=== PATIENT | female | born 1975 | race Caucasian/White ===

== ENCOUNTER → 2017-11-25 11:54 | Outpatient (CLI) | payer OTHER, SELFPAY ==
--- NOTE | 2017-11-25 11:58 | XR_ITS ---
XR chest 2V HISTORY: ITS.REASON: RIB PAIN, ORDERING PHYSICIAN: Jori Mcghee MD PATIENT AGE: 42 years COMPARISON: PA and lateral chest 08/31/2007 FINDINGS: The cardiomediastinal silhouette and pulmonary vascularity are within normal limits. The lungs are clear without infiltrates, suspicious nodules, or pleural effusions. There are partially calcified hilar nodes bilaterally. No acute bony abnormalities. IMPRESSION: Negative chest, no acute finding
== END ==
PROVIDERS: PCP Family Medicine; Visit Provider Internal Medicine
DX: R07.81 Pleurodynia (principal)
CPT/HCPCS: 71046

== ENCOUNTER → 2018-03-10 08:10 | Outpatient (CLI) | payer OTHER, SELFPAY ==
--- NOTE | 2018-03-10 08:11 | XR_ITS ---
XR elbow LT min 3V HISTORY: ITS.REASON: elbow pain ORDERING PHYSICIAN: Gerardo Carroll MD PATIENT AGE: 43 years COMPARISON: None FINDINGS: No fracture or dislocation. No evidence of displaced fat pad. There is mild soft tissue swelling overlying the olecranon region. IMPRESSION: Mild soft tissue swelling otherwise negative
== END ==
PROVIDERS: PCP Family Medicine; Visit Provider Orthopaedic Surgery
DX: M25.522 Pain in left elbow (principal)
CPT/HCPCS: 73080

== ENCOUNTER → 2018-05-19 08:20 | Outpatient (CLI) | payer OTHER, SELFPAY ==
--- NOTE | 2018-05-19 08:21 | MM_ITS ---
MM Dig screening mamm BI w/CAD ORDERING PHYSICIAN : Randy Velasquez MD PATIENT AGE: 43 years GENDER: Female COMPARISON: February 2017, May 2016 and April 2016 mammogram studies.. Also November 2011 INDICATION: ITS.REASON: Routine Screening Mammogram TECHNIQUE: Standard CC and MLO images were obtained. R2 CAD reviewed. FINDINGS: Moderately dense breast. Mammography slight decreased sensitivity in breast of this moderately dense heterogeneous character. Stable mild asymmetry with With no dominant mass or suspicious calcifications additionally seen today. Prior films are helpful and supportive stable appearance CAD computer review highlights no areas of concern either today RIGHT BREAST: No new areas of concern. Follow-up in one recommended. LEFT BREAST:No new areas of concern. The previously noted subtle architectural irregularity superior left breast unchanged since 2016. No significant new areas concern either breast. IMPRESSION: ...... Stable bilateral mammogram with no significant new findings. Moderately dense breast Follow-up in one year recommended BI-RADS Category: 2 Benign Finding(s) RECOMMENDED FOLLOW-UP: 1YR 1 YEAR FOLLOW-UP (A letter has been sent to the patient regarding results of the study.)
== END ==
PROVIDERS: PCP Family Medicine; Visit Provider Nurse Practitioner Obstetrics & Gynecology
DX: Z12.31 Encounter for screening mammogram for malignant neoplasm of breast (principal)
CPT/HCPCS: 77067

== ENCOUNTER → 2018-07-22 14:06 | Outpatient (POV) | payer OTHER, SELFPAY | PROVIDERS: Visit Provider Dermatology | DX: Z00.00 Encounter for general adult medical examination without abnormal findings (principal) ==

== ENCOUNTER → 2019-01-15 08:24 | Outpatient (CLI) | payer OTHER, SELFPAY ==
--- NOTE | 2019-01-15 08:27 | XR_ITS ---
PROCEDURE: XR ANKLE WT BEARING RT MIN 3V CLINICAL INDICATION: pain COMPARISON: No exams were available for comparison FINDINGS: No fracture, dislocation, lytic change, or blastic change evident. No significant degenerative change. The talar dome is well preserved IMPRESSION: Negative right ankle Dictated by: Danyel Gama MD 01/15/2019 18:09 Signed by: <Electronically signed by Danyel Gama MD in [place]> 01/15/2019 18:09
--- NOTE | 2019-01-15 08:27 | XR_ITS ---
PROCEDURE: XR FOOT WT BEARING RT 3V CLINICAL INDICATION: pain COMPARISON: No exams were available for comparison FINDINGS: No fracture or dislocation. Normal alignment No significant arthritic changes or bony erosive process. Unremarkable soft tissues IMPRESSION: Negative foot Dictated by: Danyel Gama MD 01/15/2019 09:14 Signed by: <Electronically signed by Danyel Gama MD in [place]> 01/15/2019 09:14
== END ==
PROVIDERS: PCP Family Medicine; Visit Provider Podiatrist
DX: M79.671 Pain in right foot (principal); M25.571 Pain in right ankle and joints of right foot
CPT/HCPCS: 73610; 73630

== ENCOUNTER → 2019-01-29 08:14 | Outpatient (CLI) | payer OTHER, SELFPAY ==
--- NOTE | 2019-01-29 08:16 | XR_ITS ---
PROCEDURE: XR ANKLE WT BEARING RT MIN 3V CLINICAL INDICATION: achilles tendonitis of right lower extremity Foot pain, Achilles tendinitis COMPARISON: XR ANKLE WT BEARING RT MIN 3V from 01/15/2019 FINDINGS: No fracture or dislocation. No lytic or blastic change. There is an enthesophytes at the Achilles insertion with a lucency at the base of the enthesophytes. IMPRESSION: No change with no acute finding Dictated by: Danyel Gama MD 01/29/2019 09:53 Signed by: <Electronically signed by Danyel Gama MD in [place]> 01/29/2019 09:53
== END ==
PROVIDERS: PCP Family Medicine; Visit Provider Podiatrist
DX: M65.28 Calcific tendinitis, other site (principal); M76.61 Achilles tendinitis, right leg
CPT/HCPCS: 73610

== ENCOUNTER → 2019-02-17 16:11 | Outpatient (CLI) | payer OTHER, SELFPAY ==
--- NOTE | 2019-02-17 16:14 | XR_ITS ---
PROCEDURE: XR CHEST 2V CLINICAL HISTORY: cough COMPARISON: CXR2V XR chest 2V from 11/25/2017 FINDINGS: The cardiomediastinal silhouette and pulmonary vascularity are within normal limits. The lungs are clear without infiltrates, suspicious nodules, or pleural effusions. No acute bony abnormalities. IMPRESSION: No acute findings. Dictated by: Danyel Gama MD 02/17/2019 16:45 Electronically signed by Danyel Gama MD in [place] 02/17/2019 16:45
== END ==
PROVIDERS: PCP Physician Assistant; Visit Provider Physician Assistant
DX: R05 Cough (principal)
CPT/HCPCS: 71046

== ENCOUNTER → 2019-06-23 08:09 | Outpatient (POV) | payer OTHER, SELFPAY | PROVIDERS: Visit Provider Dermatology | DX: Z00.00 Encounter for general adult medical examination without abnormal findings (principal) ==

== ENCOUNTER → 2019-07-08 08:19 | Outpatient (CLI) | payer OTHER, SELFPAY ==
--- NOTE | 2019-07-08 08:25 | MM_ITS ---
PROCEDURE: MM DIG SCREENING MAMM BI W/CAD CLINICAL INDICATION: Routine Screening Mammogram There is no personal or family history of breast cancer COMPARISON: DMDB DIG MAMM-DX RENARD W/CAD from 02/19/2017 [facility] MM Dig screening mamm BI w/CAD from 05/19/2018 TECHNIQUE: Standard CC and MLO images and 3D Tomosynthesis was obtained. R2 CAD reviewed. FINDINGS: Fibroglandular densities are seen in the central portions of both breast on a background of fatty breast parenchyma. There is no suspicious lesion and no suspicious microcalcifications. Jay images were reviewed showing no abnormality. IMPRESSION: Fibrofatty parenchyma with no suspicious lesions seen BI-RAD Category: 1 Negative FOLLOW-UP: 1YR 1 Year Follow-up (A letter has been sent to the patient regarding results of the study.) Dictated by: Dr. Bro Lr MD 07/09/2019 13:[address] Bro Lr MD in [place] 07/09/2019 13:09
== END ==
PROVIDERS: PCP Family Medicine; Visit Provider Nurse Practitioner Obstetrics & Gynecology
DX: Z12.31 Encounter for screening mammogram for malignant neoplasm of breast (principal)
CPT/HCPCS: 77063; 77067

== ENCOUNTER → 2019-12-14 11:18 | Outpatient (CLI) | payer OTHER, SELFPAY ==
--- NOTE | 2019-12-14 11:19 | CA_ITS ---
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 RVT Ht: 5 ft 4 in Wt: 144lbs BSA: 1.70 BP: 116/73 mmHg Indications: CP,PALPS,SMOKER 2D Dimensions LVOT 1.70 cm (M/F) 1.5-2.5 M-Mode Dimensions RVDd 2.35 cm (0.9-2.6) LVDd 3.94 cm (3.5-5.7) LVDs 2.63 cm (3.5-5.7) IVSd 1.10 cm (0.6-1.1) PWd 0.66 cm (0.6-1.1) EF (Teich) 62.50% FS 33.20% EDV (Teich) 67.50 mL ESV (Teich) 25.30 mL LV Diastology E/A Ratio 0.76 Mitral Valve MV A Velocity 76.00 (40-130 cm/s) Left Ventricle Left atrium is normal size, left ventricle is normal size, left ventricle wall thickness is upper limit of the normal, there is preserved left ventricular systolic function, visually estimated ejection fraction 55% with no regional wall motion abnormality, grade 1 diastolic dysfunction seen without tissue Doppler evidence of raise left atrial pressure. Right Ventricle Right atrium and right ventricular normal size and contractility. Aortic Valve Aortic valve is grossly normal, there is no aortic stenosis or aortic insufficiency. Mitral Valve Mitral valve is grossly normal, there is mild mitral regurgitation. Tricuspid Valve Tricuspid valve grossly normal, there is mild tricuspid regurgitation, tricuspid regurgitation jet velocity is inadequate for calculation of the right ventricular systolic pressure. Pulmonic Valve Pulmonic valve is poorly visualized. Great Vessels Aortic root is normal size. Pericardium No significant pericardial effusion noted. Conclusion 1. Normal left ventricular size, preserved left ventricular systolic function, visually estimated ejection fraction 55% with no regional wall motion abnormality. Grade 1 diastolic dysfunction seen without tissue Doppler evidence of raise left atrial pressure. 2. Mild mitral and tricuspid regurgitation. 3. No significant pericardial effusion noted. Electronically signed by : Drew Sepulveda, 12/14/2019 17:48:17
[2019-12-14 13:00] LABS: Chloride 103 mmol/L (98-107); Potassium 4.4 mmoL/L (3.5-5.1); Sodium 139 mmol/L (136-145)
[2019-12-14 13:02] LABS: Blood Urea Nitrogen 16 mg/dl (7-17); Estimated Glomerular Filt Rate 49 ml/min (>60); GFR (African American) 59 ML/MIN (>60)
[2019-12-14 13:03] LABS: Anion Gap 12.4 mEq/L (5-15); Calcium 9.6 mg/dl (8.4-10.2); Carbon Dioxide 28 mmol/L (22.0-30.0); Glucose 93 mg/dl (74-100); Magnesium 2.1 mg/dl (1.6-2.3)
[2019-12-14 13:20] LABS: Triiodothryronine (T3) Uptake 32 % (23.5-40.5)
[2019-12-14 13:21] LABS: Free Thyroxine Index 3.2 ug/dL (5.93-13.13)
[2019-12-14 13:35] LABS: Thyroid Stimulating Hormone 1.35 uIU/mL (0.465-4.68)
== END ==
PROVIDERS: PCP Family Medicine; Visit Provider Physician Assistant
DX: I48.92 Unspecified atrial flutter (principal); R00.2 Palpitations
CPT/HCPCS: 36415; 80048; 83735; 84436; 84443; 84479; 93306

== ENCOUNTER → 2019-12-15 10:01 | Outpatient (CLI) | payer OTHER, SELFPAY | PROVIDERS: PCP Family Medicine; Visit Provider Internal Medicine | DX: I49.9 Cardiac arrhythmia, unspecified (principal) | CPT/HCPCS: 93225; 93226 ==

== ENCOUNTER → 2020-02-09 14:05 | Outpatient (POV) | payer OTHER, SELFPAY | PROVIDERS: Visit Provider Dermatology | DX: Z00.00 Encounter for general adult medical examination without abnormal findings (principal) ==

== ENCOUNTER → 2020-02-26 07:25 | Outpatient (CLI) | payer OTHER, SELFPAY ==
[2020-02-26 08:39] LABS: Alanine Aminotransferase 24 U/L (12-78); Alkaline Phosphatase 57 U/L (38-126); Aspartate Amino Transferase 24 U/L (14-36); Bilirubin,Unconjugated 0.9 mg/dL (0.0-1.1)
[2020-02-26 08:40] LABS: Albumin Level 4.1 g/dl (3.5-5.0); Chol/HDL Ratio 4.9 (1-3.5); Cholesterol 251 mg/dl (140-200); HDL Cholesterol 51 mg/dl (40-60); Total Protein,Serum 6.7 g/dl (6.3-8.2); Triglycerides 97 mg/dl (30-150); VLDL Cholesterol 19 mg/dL (0-40)
[2020-02-26 08:51] LABS: Direct LDL Cholesterol 172.25 mg/dL (100-129)
== END ==
PROVIDERS: Visit Provider Nurse Practitioner Family
DX: E78.5 Hyperlipidemia, unspecified (principal)
CPT/HCPCS: 36415; 80061; 80076

== ENCOUNTER → 2020-03-07 07:43 | Outpatient (CLI) | payer OTHER, SELFPAY ==
--- NOTE | 2020-03-07 07:43 | CA_ITS ---
APPROVED REPORT Exam: Exercise Treadmill Technologist: Terrie Leslie, Ht: 5 ft 4 in Wt: 140 lbs BSA: 1.68 m2 HR: 82 bpm BP: 117/70 mmHg Indications: Shortness of Breath Medical History Medications: Aspirin,,,,, Atorvastatin,,,,, Ranitidine,,,,, Ropinirole,,,,, Stress Test Details Test: Roberto HR Resting HR: 99 bpm Max Heart Rate (APMHR): 176 bpm Max HR Achieved: 154 bpm Target HR (85% APMHR): 149 bpm % of APMHR: 87 Recovery HR: 94 bpm BP Resting BP: 117/70 mmHg Max BP: 160/82 mmHg Recovery BP: 131.0/82.0 mmHg ECG Clinical Exercise duration: 11:08 min Highest Stage Achieved: Exercise capacity: 12.8 METs Stress ECG Conclusion Resting EKG: Sinus Rhythm Roberto Protocol Completed, Excerised 11:08, stopped due to sweating and SOB Mets: 12.8 Max HR: 154 bpm Max BP: 160/82 Symptoms: No Chest Pain, (+) SOB, (+) Sweating at peak excerise, resolved in recovery Arrythmias/Ectopy: OCC PVC ST-T changes: Greater than 1.5 mm in Inferior Leads, resolved in recovery Conclusion: 1. GXT only 2. Appropriate BP response 3. Good excerise capacity 4. Denies Chest Pain 5. OCC PVC 6. Less than 1.[address] Depression 7. Normal exercise treadmill stress test. Test Summary RECOVERY 04:00 0.0 0.0 100 . 139/ 85 . . REST 08:41 0.0 0.0 99 . 117/ 70 . . Stage 1 01:00 10.0 1.7 109 . . . . Stage 1 02:00 10.0 1.7 115 . . . . Stage 1 03:00 10.0 1.7 120 . 120/ 76 . . Stage 2 01:00 12.0 2.5 121 . . . . Stage 2 02:00 12.0 2.5 120 . . . . Stage 2 03:00 12.0 2.5 128 . 132/ 80 . . Stage 3 01:00 14.0 3.4 133 . . . . Stage 3 02:00 14.0 3.4 132 . . . . Stage 3 03:00 14.0 3.4 132 . 148/ 84 . . Stage 4 01:00 16.0 4.2 148 . . . . Stage 4 02:00 16.0 4.2 152 . . . . Stage 4 02:08 16.0 4.2 154 . . . Stop exercise at 11:08 RECOVERY 01:00 0.0 0.0 122 . . . . RECOVERY 02:00 0.0 0.0 111 . 160/ 82 . . RECOVERY 03:00 0.0 0.0 103 . 139/ 85 . . RECOVERY 04:00 0.0 0.0 100 . 139/ 85 . . RECOVERY 04:36 0.0 0.0 94 . 131/ 82 . . Electronically signed by : Drew Sepulveda, 03/07/2020 19:32:50
== END ==
PROVIDERS: PCP Family Medicine; Visit Provider Nurse Practitioner Family
DX: R06.02 Shortness of breath (principal); E78.5 Hyperlipidemia, unspecified; Z72.0 Tobacco use
CPT/HCPCS: 93017

== ENCOUNTER → 2020-03-10 10:23 | Outpatient (CLI) | payer OTHER, SELFPAY ==
--- NOTE | 2020-03-10 10:28 | XR_ITS ---
PROCEDURE: XR CHEST 2V CLINICAL HISTORY: congestion Cough and congestion COMPARISON: CR CXR2V XR chest 2V from 11/25/2017 CR XR CHEST 2V from 02/17/2019 FINDINGS: The cardiomediastinal silhouette and pulmonary vascularity are within normal limits. The lungs are clear without infiltrates, suspicious nodules, or pleural effusions. No acute bony abnormalities. IMPRESSION: No acute findings. Dictated by: Danyel Gama MD 03/10/2020 16:57 Danyel Gama MD in [place] 03/10/2020 16:57
== END ==
PROVIDERS: PCP Family Medicine; Visit Provider Nurse Practitioner Family
DX: R09.89 Other specified symptoms and signs involving the circulatory and respiratory systems (principal)
CPT/HCPCS: 71046

== ENCOUNTER → 2020-09-27 15:09 | Outpatient (POV) | payer OTHER, SELFPAY | PROVIDERS: Visit Provider Dermatology | DX: Z00.00 Encounter for general adult medical examination without abnormal findings (principal) ==

== ENCOUNTER → 2021-02-07 13:14 | Outpatient (POV) | payer OTHER, SELFPAY | PROVIDERS: Visit Provider Dermatology | DX: Z00.00 Encounter for general adult medical examination without abnormal findings (principal) ==

== ENCOUNTER → 2021-02-28 14:46 | Outpatient (CLI) | payer OTHER, SELFPAY ==
--- NOTE | 2021-02-28 14:49 | XR_ITS ---
PROCEDURE: XR RIBS RT MIN 3V W CXR1V CLINICAL INDICATION: RIB PAIN ON RT SIDE COMPARISON: CR CXR2V XR chest 2V from 11/25/2017 CR XR CHEST 2V from 02/17/2019 CR XR CHEST 2V from 03/10/2020 FINDINGS: Frontal view of the chest shows no acute finding. Three views of the right ribs show no fracture or dislocation. No lytic or blastic change. IMPRESSION: No acute findings. Dictated by: Danyel Gama MD 02/28/2021 15:08 Danyel Gama MD in [place] 02/28/2021 15:08
== END ==
PROVIDERS: PCP Family Medicine; Visit Provider Family Medicine
DX: R07.81 Pleurodynia (principal)
CPT/HCPCS: 71101

== ENCOUNTER → 2021-09-26 08:11 | Outpatient (POV) | payer OTHER, SELFPAY | PROVIDERS: Visit Provider Dermatology | DX: Z00.00 Encounter for general adult medical examination without abnormal findings (principal) ==

== ENCOUNTER → 2021-11-08 07:29 | Outpatient (CLI) | payer OTHER, SELFPAY ==
[2021-11-08 08:02] LABS: Basophils # 0.1 K/mm3 (0-0.2); Basophils % 1.2 % (0.1-2.0); Eosinophils # 0.4 K/mm3 (0.0-0.4); Eosinophils % 6.3 % (0.1-12.0); Hematocrit 44.1 % (37.0-47.0); Hemoglobin 15.1 g/dL (12.2-16.2); Lymphocytes # 2.4 K/mm3 (0.7-4.5); Mean Corpuscular HGB Conc 34.2 g/dL (31.8-35.4); Mean Corpuscular Hemoglobin 31.7 pg (27.0-31.2); Mean Corpuscular Volume 92.5 fl (81-99); Mean Platelet Volume 7.2 fl (7.4-10.4); Monocytes # 0.5 K/mm3 (0.1-1.0); Monocytes % 6.9 % (1.7-9.3); Neutrophils # 3.5 K/mm3 (1.8-7.8); Neutrophils % 50.7 % (37.0-80.0); Platelet Count 311 K/mm3 (142-424); Red Blood Count 4.76 M/mm3 (4.20-5.40); Red Cell Distribution Width 12.7 % (11.5-17.5); White Blood Count 6.9 K/mm3 (4.8-10.8)
[2021-11-08 08:17] LABS: Chloride 108 mmol/L (98-107); Sodium 139 mmol/L (136-145)
[2021-11-08 08:18] LABS: Potassium 4.2 mmoL/L (3.5-5.1)
[2021-11-08 08:20] LABS: Alanine Aminotransferase 46 U/L (12-78); Alkaline Phosphatase 74 U/L (38-126); Anion Gap 9.2 mEq/L (5-15); Aspartate Amino Transferase 43 U/L (14-36); Bilirubin,Direct 0.1 mg/dl (0.0-0.4); Bilirubin,Indirect 0.8 mg/dL (0.0-0.9); Bilirubin,Total 0.9 mg/dl (0.2-1.3); Bilirubin,Unconjugated 0.9 mg/dL (0.0-1.1); Blood Urea Nitrogen 11 mg/dl (7-17); Calcium 9.7 mg/dl (8.4-10.2); Carbon Dioxide 26 mmol/L (22.0-30.0); Cholesterol 262 mg/dl (140-200); Estimated Glomerular Filt Rate 78 ml/min (>60); GFR (African American) 94 ML/MIN (>60); Glucose 109 mg/dl (74-100); Triglycerides 134 mg/dl (30-150); VLDL Cholesterol 27 mg/dL (0-40)
[2021-11-08 08:21] LABS: Albumin Level 4.3 g/dl (3.5-5.0); HDL Cholesterol 44 mg/dl (40-60); Magnesium 1.9 mg/dl (1.6-2.3); Total Protein,Serum 6.8 g/dl (6.3-8.2)
[2021-11-08 08:32] LABS: Direct LDL Cholesterol 184.99 mg/dL (100-129)
[2021-11-08 08:50] LABS: Thyroid Stimulating Hormone 1.54 uIU/mL (0.465-4.68)
== END ==
PROVIDERS: PCP Family Medicine; Visit Provider Internal Medicine
DX: R06.02 Shortness of breath (principal); E78.5 Hyperlipidemia, unspecified; Z72.0 Tobacco use; Z82.49 Family history of ischemic heart disease and other diseases of the circulatory system; Z79.899 Other long term (current) drug therapy
CPT/HCPCS: 36415; 80048; 80061; 80076; 83735; 84439; 84443; 85025

== ENCOUNTER → 2021-11-13 07:27 | Outpatient (CLI) | payer SELFPAY ==
--- NOTE | 2021-11-13 07:27 | CT_ITS ---
FINAL REPORT CLINICAL HISTORY: Chest pain FINDINGS: CT CORONARY CALCIUM SCORE W/O TECHNIQUE: Thin-section axial images were obtained through the heart and coronary arteries per CT coronary calcium score protocol. This study was performed with techniques to keep radiation doses as low as reasonably achievable (ALARA). Individualized dose reduction techniques using automated exposure control or adjustment of mA and/or kV according to the patient's size were employed. FINDINGS: On the axial images, there are small calcifications within the right coronary artery. This gives a coronary artery calcium score of 2 based on the Agatston scale. This coronary artery calcium score places the patient within the 73rd percentile based on age and gender. The heart size is normal. There is no pleural or pericardial effusion. Limited evaluation of the lungs reveal no suspicious nodule. IMPRESSION: Coronary artery calcium score of 2 based on the Agatston scale which places the patient within the 73rd percentile based on age and gender. Reviewed, Interpreted and Dictated by Colin Jaeger III, MD Transcribed by Juhi Aguirre Authenticated and [facility]
== END ==
PROVIDERS: PCP Family Medicine; Visit Provider Internal Medicine
DX: R07.9 Chest pain, unspecified (principal)
CPT/HCPCS: 75571

== ENCOUNTER → 2022-01-25 07:07 | Outpatient (CLI) | payer OTHER, SELFPAY ==
--- NOTE | 2022-01-25 08:49 | HMH.ITSHM ---
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 []ESOMEPRAZOLE BISOPROLOL ATORVASTATIN ASA ALBUTEROL
== END ==
PROVIDERS: PCP Family Medicine; Visit Provider Internal Medicine
DX: R06.02 Shortness of breath (principal)
CPT/HCPCS: 78452; 93017; A9502

== ENCOUNTER 2023-09-10 08:14 | Outpatient (CLI) | payer OTHER, SELFPAY ==
--- NOTE | 2023-09-10 08:18 | XR_ITS ---
FINAL REPORT CLINICAL HISTORY: fall, coccyx pain FINDINGS: Pelvis A single view was obtained. There is no acute fracture or dislocation. The joint spaces appear normal. No soft tissue abnormality is identified. IMPRESSION: No acute process. Reviewed, Interpreted and Dictated by Colin Jaeger III, MD Transcribed by Kelsey Aldridge Authenticated and [facility]
--- NOTE | 2023-09-10 08:18 | XR_ITS ---
FINAL REPORT CLINICAL HISTORY: fall, low back pain FINDINGS: LUMBAR SPINE Five views demonstrate no acute fracture. There are mild degenerative changes with osteophytes. There is no malalignment. IMPRESSION: No acute process. Reviewed, Interpreted and Dictated by Colin Jaeger III, MD Transcribed by Kelsey Aldridge Authenticated and [facility]
== END 2023-09-10 23:59 | disposition home or self-care (01) ==
LOC: RAD 08:14
PROVIDERS: PCP Nurse Practitioner Family; Visit Provider Nurse Practitioner Family
DX: M53.3 Sacrococcygeal disorders, not elsewhere classified (principal); M54.50 Low back pain, unspecified; W19.XXXA Unspecified fall, initial encounter
CPT/HCPCS: 72110; 72170

== ENCOUNTER 2023-11-06 08:51 | Outpatient (CLI) | payer OTHER, SELFPAY ==
[2023-11-06 08:55] LABS: Microscopic, Urine URINE MICROSCOPIC (MICROSCOPIC)
[2023-11-06 09:22] LABS: Appearance,Urine CLEAR (Clear); Bilirubin,Urine Negative (Negative); Blood, Urine Negative (Negative); Color,Urine YELLOW (Yellow); Glucose,Urine (UA) Negative (Negative); Ketones,Urine Negative (Negative); Leukocyte Esterase,Urine 1+ (Negative); Nitrate,Urine Negative (Negative); Protein,Urine Negative (Negative); Specific Gravity, Urine 1.025 (1.005-1.030)
[2023-11-06 09:24] LABS: Basophils # 0.1 K/mm3 (0-0.2); Basophils % 1.3 % (0.1-2.0); Eosinophils # 0.1 K/mm3 (0.0-0.4); Hematocrit 41.5 % (37.0-47.0); Hemoglobin 13.9 g/dL (12.2-16.2); Lymphocytes # 2.7 K/mm3 (0.7-4.5); Lymphocytes % 45.5 % (10-50); Mean Corpuscular HGB Conc 33.5 g/dL (31.8-35.4); Mean Corpuscular Hemoglobin 32.8 pg (27.0-31.2); Mean Platelet Volume 7.8 fl (7.4-10.4); Monocytes # 0.3 K/mm3 (0.1-1.0); Monocytes % 5.6 % (1.7-9.3); Neutrophils # 2.7 K/mm3 (1.8-7.8); Neutrophils % 45.5 % (37.0-80.0); Platelet Count 273 K/mm3 (142-424); Red Blood Count 4.23 M/mm3 (4.20-5.40); White Blood Count 5.9 K/mm3 (4.8-10.8)
[2023-11-06 09:40] LABS: RBC,Urine Occasional #/hpf (0-3)
[2023-11-06 09:42] LABS: Bacteria,Urine 1+ /lpf; Mucus,Urine Trace /lpf
[2023-11-06 09:51] LABS: Erythrocyte Sedimentation Rate 21 mm/hr (0-20)
[2023-11-06 10:47] LABS: Chloride 105 mmol/L (98-107); Sodium 139 mmol/L (136-145)
[2023-11-06 10:48] LABS: Potassium 4.2 mmoL/L (3.5-5.1)
[2023-11-06 10:50] LABS: Alanine Aminotransferase 27 U/L (12-78); Alkaline Phosphatase 45 U/L (38-126); Amylase 55 U/L (30-110); Anion Gap 11.2 mEq/L (5-15); Aspartate Amino Transferase 26 U/L (14-36); Bilirubin,Total 0.9 mg/dl (0.2-1.3); Blood Urea Nitrogen 13 mg/dl (7-17); Calcium 9.5 mg/dl (8.4-10.2); Carbon Dioxide 27 mmol/L (22.0-30.0); Estimated Glomerular Filt Rate 90 ml/min (>60); GFR (African American) 109 ML/MIN (>60); Glucose 95 mg/dl (74-100); HDL Cholesterol 47 mg/dl (40-60); Hemoglobin A1C 4.9 % (4.0-6.0); Iron 65 ug/dL (37-170); Lipase 82 U/L (23-300)
[2023-11-06 10:51] LABS: Albumin Level 4.2 g/dl (3.5-5.0); Albumin/Globulin Ratio 1.8 (1.1-1.8); Cholesterol 92 mg/dl (140-200); Globulin 2.4 g/dL (1.3-3.2); Total Protein,Serum 6.6 g/dl (6.3-8.2); Triglycerides 57 mg/dl (30-150); VLDL Cholesterol 11 mg/dL (0-40)
[2023-11-06 10:57] LABS: C-Reactive Protein 40.9 mg/L (0-4)
[2023-11-06 11:02] LABS: Direct LDL Cholesterol 45.49 mg/dL (100-129)
[2023-11-06 11:06] LABS: Free T4 (Free Thyroxine) 1.63 ng/dl (0.78-2.19); Total Iron Binding Capacity 162 ug/dL (265-497)
[2023-11-06 11:22] LABS: Thyroid Stimulating Hormone 1.33 uIU/mL (0.465-4.68)
[2023-11-06 11:25] LABS: Ferritin 82.7 ng/ml (6.24-137)
[2023-11-06 15:01] LABS: 25-OH Vitamin D, Total 64.4 ng/mL (30-100)
[2023-11-06 16:38] LABS: Vitamin B12 561 pg/mL (239-931)
[2023-11-07 14:43] LABS: H. pylori Breath Test Negative (Negative)
== END 2023-11-06 23:59 | disposition home or self-care (01) ==
LOC: LAB 08:52
PROVIDERS: PCP Nurse Practitioner Family; Visit Provider Nurse Practitioner Family
DX: R19.8 Other specified symptoms and signs involving the digestive system and abdomen; R53.83 Other fatigue; G25.81 Restless legs syndrome; Z13.1 Encounter for screening for diabetes mellitus; Z13.220 Encounter for screening for lipoid disorders; R11.10 Vomiting, unspecified; R10.32 Left lower quadrant pain; R14.3 Flatulence; R19.7 Diarrhea, unspecified; Z68.23 Body mass index [BMI] 23.0-23.9, adult
CPT/HCPCS: 36415; 80050; 80053; 80061; 81001; 82150; 82306; 82607; 82728; 83013; 83036; 83540; 83550; 83690; 84439; 84443; 85025; 85651; 86140; 87086

== ENCOUNTER 2024-04-02 09:26 | Outpatient (CLI) | payer OTHER, SELFPAY ==
--- NOTE | 2024-04-02 09:26 | MM_ITS ---
PROCEDURE INFORMATION: Exam: MG Bilateral Screening 3D Mammography Exam date and time: 04/02/2024 9:12 AM Age: 49 years old Clinical indication: Screening examination TECHNIQUE: Imaging protocol: Bilateral Screening tomosynthesis and 2D mammography including computer-aided detection (CAD) when performed. COMPARISON: 1. MG MM DIG SCREENING MAMM BI W/CAD 07/08/2019 8:34 AM 2. MG [facility] MM Dig screening mamm BI w/CAD 05/19/2018 8:33 AM FINDINGS: MAMMOGRAPHY: Breast composition: There are scattered areas of fibroglandular density. Mass: None. Architectural distortion: None. Calcifications: No suspicious calcifications. Asymmetric density: None. Skin thickening: None. Axillary adenopathy: None. IMPRESSION: No mammographic evidence of malignancy. Annual screening is recommended unless otherwise clinically indicated. ASSESSMENT: BI-RADS Category 1: Negative.
== END 2024-04-02 23:59 | disposition home or self-care (01) ==
LOC: RAD 09:26
PROVIDERS: PCP Nurse Practitioner Family; Visit Provider Nurse Practitioner Obstetrics & Gynecology
DX: Z12.31 Encounter for screening mammogram for malignant neoplasm of breast (principal)
CPT/HCPCS: 77063; 77067

== ENCOUNTER 2024-06-18 07:08 | Outpatient (CLI) | payer OTHER, SELFPAY ==
--- NOTE | 2024-06-18 07:11 | US_ITS ---
PROCEDURE: US TRANSVAGINAL CLINICAL INDICATION: Abnormal PAP COMPARISON: No exams were available for comparison FINDINGS: Transvaginal sonographic images of the pelvis were obtained. UTERUS: 5.1cm x 3.8 cmx 3.1cm retroverted with a combined endometrial thickness of 6mm. Most images show that the lining of the uterus is 2-3 mm. LEFT OVARY: 1.7 cmx1.2cmx0.8cm with a volume of 0.8ml. RIGHT OVARY: 1.2cmx 0.8 cmx0.7 cm with a volume of 0.3ml. Both ovaries are seen and appear normal. Doppler flow to both ovaries are seen. There is no fluid in the cul-de-sac. IMPRESSION: 1. Retroverted, small uterus. The endometrium is thin. 2. Both ovaries are seen and appear atrophic. 3. No fluid in the cul-de-sac. Dictated by: Randy Velasquez MD 06/18/2024 11:30 Randy Velasquez MD in [place] 06/18/2024 11:30
== END 2024-06-18 23:59 | disposition home or self-care (01) ==
PROVIDERS: PCP Nurse Practitioner Family; Visit Provider Nurse Practitioner Obstetrics & Gynecology
DX: R87.610 Atypical squamous cells of undetermined significance on cytologic smear of cervix (ASC-US) (principal); R87.619 Unspecified abnormal cytological findings in specimens from cervix uteri
CPT/HCPCS: 76830

== ENCOUNTER 2025-04-20 12:40 | Outpatient (CLI) | payer OTHER, SELFPAY ==
--- NOTE | 2025-04-20 13:00 | MM_ITS ---
PROCEDURE INFORMATION: Exam: MG Bilateral Screening 3D Mammography Exam date and time: 04/20/2025 12:57 PM Age: 50 years old Clinical indication: Screening examination TECHNIQUE: Imaging protocol: Bilateral Screening tomosynthesis and 2D mammography including computer-aided detection (CAD) when performed. COMPARISON: 1. MG MM DIG SCREENING MAMM BI W/CAD 04/02/2024 9:12 AM 2. MG MM DIG SCREENING MAMM BI W/CAD 07/08/2019 8:34 AM FINDINGS: MAMMOGRAPHY: Breast composition: There are scattered areas of fibroglandular density. Mass: None. Architectural distortion: None. Calcifications: No suspicious calcifications. Asymmetric density: None. Skin thickening: None. Axillary adenopathy: None. IMPRESSION: No mammographic evidence of malignancy. Annual screening is recommended unless otherwise clinically indicated. ASSESSMENT: BI-RADS Category 1: Negative.
== END 2025-04-20 23:59 | disposition home or self-care (01) ==
LOC: RAD 12:41
PROVIDERS: PCP Nurse Practitioner Family; Visit Provider Nurse Practitioner Obstetrics & Gynecology
DX: Z12.31 Encounter for screening mammogram for malignant neoplasm of breast (principal); R92.323 Mammographic fibroglandular density, bilateral breasts
CPT/HCPCS: 77063; 77067